=== PATIENT | female | born 1990 ===

== ENCOUNTER 2018-11-30 08:10 | Outpatient (CLI) | payer OTHER | END 2018-11-30 08:16 | disposition home or self-care (01) | LOC: SONOGRAMA 08:10 → MAMO-SONO 08:45 | DX: K35.80 Unspecified acute appendicitis (principal) ==

== ENCOUNTER 2023-08-14 10:23 | Outpatient (CLI) | payer OTHER | END 2023-08-14 10:35 | disposition home or self-care (01) | LOC: RAD 10:23 | DX: I49.5 Sick sinus syndrome (principal); T82.120D Displacement of cardiac electrode, subsequent encounter ==

== ENCOUNTER 2023-10-27 13:11 | Outpatient (CLI) | payer OTHER | END 2023-10-27 13:22 | disposition home or self-care (01) | LOC: MRI 13:11 | DX: M84.48XA Pathological fracture, other site, initial encounter for fracture (principal) | CPT/HCPCS: 72146; 72148 ==